=== PATIENT | female | born 1980 | race Caucasian/White ===

== ENCOUNTER 2022-05-30 09:51 | Emergency (ER) | payer OTHER | END 2022-05-30 10:30 | disposition home or self-care (01) | LOC: VM.ED 09:51 | DX: S90.122A Contusion of left lesser toe(s) without damage to nail, initial encounter (principal); X58.XXXA Exposure to other specified factors, initial encounter; Y99.0 Civilian activity done for income or pay | CPT/HCPCS: 73630-LT; 99283 ==

== ENCOUNTER 2022-11-27 21:21 | Emergency (ER) | payer OTHER ==
[2022-11-27] MEDS ORDERED: Ketorolac 30 MG/ML SDV IM ONE (21:43)
[2022-11-27] MEDS ORDERED: Orphenadrine 60 MG/2 ML Inj IM ONE (21:43)
== END 2022-11-27 22:31 | disposition home or self-care (01) ==
LOC: VM.ED 21:21
DX: M77.8 Other enthesopathies, not elsewhere classified (principal); Z88.8 Allergy status to other drugs, medicaments and biological substances
CPT/HCPCS: 96372; 99283; J1885; J2360

== ENCOUNTER 2024-07-14 21:27 | Emergency (ER) | payer OTHER ==
[2024-07-14] MEDS: Take Home: Amoxicillin/Clavulanate K 875-125 MG Tab, 2 Tab Pack PO ONE (22:05)
== END 2024-07-14 22:11 | disposition home or self-care (01) ==
LOC: VM.ED 21:27
DX: S61.052A Open bite of left thumb without damage to nail, initial encounter (principal); W55.01XA Bitten by cat, initial encounter; Z88.8 Allergy status to other drugs, medicaments and biological substances
CPT/HCPCS: 99283; A9270-GY